=== PATIENT | female | born 1955 | race Caucasian/White ===

== ENCOUNTER 2018-08-29 20:04 | Emergency (ER) | payer MEDICAID ==
[~2018-08-29] VITALS: Ht 154.9 cm; Wt 65.8 kg
[2018-08-29 20:59] VITALS: BP_SYST 167
--- NOTE | 2018-08-29 21:03 | NUR ---
Pt placed to ER waiting room in W/C in stable condition.
--- NOTE | 2018-08-29 21:55 | NUR ---
Patient to ER H1 to gown for evaluation. Side rails up.
--- NOTE | 2018-08-29 21:58 | NUR ---
2158 - ER at bedside examining patient.
[2018-08-29 23:00] VITALS: BP_SYST 167
--- NOTE | 2018-08-29 23:00 | NUR ---
2300 - Patient given written and verbal discharge instructions and verbalizes understanding. ER MD discussed with patient the results and treatment provided. Patient in stable condition. ID arm band removed. IV catheter removed intact and dressing applied, no active bleeding. Rx of naprosyn given. Patient educated on pain management and to follow up with PMD. Opportunity for questions provided and answered. Medication side effect fact sheet provided. in wheelchair
== END 2018-08-29 23:00 | disposition home or self-care (01) ==
LOC: SED 20:04
DX: S93.401A Sprain of unspecified ligament of right ankle, initial encounter (principal); R03.0 Elevated blood-pressure reading, without diagnosis of hypertension; X50.9XXA Other and unspecified overexertion or strenuous movements or postures, initial encounter; Y93.01 Activity, walking, marching and hiking; Y92.89 Other specified places as the place of occurrence of the external cause; Y99.8 Other external cause status
CPT/HCPCS: 99283